=== PATIENT | male | born 1995 | race Caucasian/White ===

== ENCOUNTER 2018-03-31 20:12 | Emergency (ER) | payer SELFPAY ==
[~2018-03-31] VITALS: Ht 167.6 cm; Wt 84.4 kg
[2018-03-31] MEDS ORDERED: NS IV 1000 ML 1,000 ML ONE (20:25)
[2018-03-31] MEDS ORDERED: KETOROLAC 30 MG/ML VIAL ONE (20:25)
[2018-03-31] MEDS ORDERED: fentaNYL INJECTION 100 MCG/2 ML AMP ONE (20:25)
[2018-03-31] MEDS ORDERED: KETOROLAC 30 MG/ML VIAL IVP ONE (20:30)
[2018-03-31] MEDS ORDERED: fentaNYL INJECTION 100 MCG/2 ML AMP IVP ONE (20:30)
[2018-03-31] MEDS ORDERED: NS IV 1000 ML 1,000 ML IV SCH (20:30)
[2018-03-31 20:32] LABS: BASOPHILS % (AUTO) 0 % (0-10); EOSINOPHILS # (AUTO) 0.2 10^3/uL (0.0-0.3); EOSINOPHILS % (AUTO) 2 % (0-10); HEMATOCRIT 45 % (40-54); HEMOGLOBIN 16.4 G/DL (13.3-17.7); LYMPHOCYTES # (AUTO) 1.1 X 10^3 (1.0-4.0); LYMPHOCYTES % (AUTO) 16 % (12-44); MEAN CORPUSCULAR HEMOGLOBIN 31 PG (25-34); MEAN CORPUSCULAR HGB CONC 36 G/DL (32-36); MEAN CORPUSCULAR VOLUME 86 FL (80-99); MONOCYTES # (AUTO) 0.6 X 10^3 (0.0-1.0); MONOCYTES % (AUTO) 9 % (0-12); NEUTROPHILS # (AUTO) 4.7 X 10^3 (1.8-7.8); NEUTROPHILS % (AUTO) 72 % (42-75); PLATELET COUNT 248 10^3/uL (130-400); RED BLOOD COUNT 5.28 10^6/uL (4.35-5.85); RED CELL DISTRIBUTION WIDTH 12.4 % (10.0-14.5); WHITE BLOOD COUNT 6.5 10^3/uL (4.3-11.0)
[2018-03-31] MEDS ORDERED: ONDANSETRON 4 MG/2 ML (SDV) Z0FRAN ONE (20:54)
[2018-03-31] MEDS ORDERED: ONDANSETRON 4 MG/2 ML (SDV) Z0FRAN IVP ONE (21:00)
[2018-03-31 21:02] LABS: ALANINE AMINOTRANSFERASE 16 U/L (0-55); ALBUMIN 4.7 GM/DL (3.2-4.5); ALKALINE PHOSPHATASE 60 U/L (40-136); AMYLASE 64 U/L (25-125); BILIRUBIN,TOTAL 0.7 MG/DL (0.1-1.0); BUN/CREATININE RATIO 10; CARBON DIOXIDE 15 MMOL/L (21-32); CHLORIDE 102 MMOL/L (98-107); CREATININE SERUM 1.35 MG/DL (0.60-1.30); GFR ESTIMATED > 60; GLUCOSE 195 MG/DL (70-105); LIPASE 27 U/L (8-78); POTASSIUM 2.9 MMOL/L (3.6-5.0); SODIUM 138 MMOL/L (135-145); TOTAL PROTEIN 7.2 GM/DL (6.4-8.2)
--- NOTE | 2018-03-31 21:02 | ED Back Pain ---
General Chief Complaint: Back Problems Stated Complaint: PANTING/SOB/BACK PAIN/BLOOD IN URINE Nursing Triage Note: states that this afternoon started having lower left back pain, masturbated, pain increased and urinated blood. panting Nursing Sepsis Screen: No Definite Risk Source of Information: Patient Exam Limitations: No Limitations History of Present Illness Date Seen by Provider: Mar 31, 2018 Time Seen by Provider: 20:20 Initial Comments Patient is a 22-year-old male who presents to the emergency room with complaints of lower left back pain that started this afternoon. He reports that this evening he did masturbate and the pain increased and he started to urinate blood. He also reports nausea. Denies history of kidney stones. Pain/Injury Location: Back, Other Allergies and Home Medications Allergies Coded Allergies: No Known Drug Allergies (Unverified , 03/31/18) Home Medications Hydrocodone Bit/Acetaminophen 1 Tab Tab, 1-2 EACH PO Q6H PRN for PAIN-MODERATE Prescribed by: JUHI POTTS on 03/31/182149 Ondansetron 4 Mg Tab.rapdis, 4 MG SL Q4H PRN for NAUSEA/VOMITING-1ST LINE Prescribed by: JUHI POTTS on 03/31/182151 Sulfamethoxazole/Trimethoprim 1 Each Tablet, 1 EACH PO BID Prescribed by: JUHI POTTS on 03/31/182149 Patient Home Medication List Home Medication List Reviewed: Yes Review of Systems Constitutional: see HPI; No chills, No fever Gastrointestinal: LLQ (left flank), see HPI, nausea Genitourinary: hematuria All Other Systems Reviewed Negative Unless Noted: Yes Past Kqsznok-Jnrinp-Udsrfx Hx Past Med/Social Hx: Reviewed Nursing Past Med/Soc Hx Patient Social History Alcohol Use: Denies Use Recreational Drug Use: No Smoking Status: Never a Smoker 2nd Hand Smoke Exposure: No Recent Foreign Travel: No Contact w/Someone Who Travel: No Recent Infectious Disease Expo: No Recent Hopitalizations: No Physical Abuse: No Sexual Abuse: No Mistreated: No Fear: No Seasonal Allergies Seasonal Allergies: No Past Medical History Surgeries: Yes Orthopedic Respiratory: No Cardiac: No Neurological: No Genitourinary: No Gastrointestinal: No Musculoskeletal: No Endocrine: No HEENT: No Cancer: No Psychosocial: No Integumentary: No Blood Disorders: No Adverse Reaction/Blood Tranf: No Family Medical History Reviewed Nursing Family Hx Physical Exam Vital Signs Vital Signs - First Documented 03/31/18 20:20 Temp 96.7 Pulse 78 Resp 16 B/P (MAP) 154/88 (110) Pulse Ox 100 Capillary Refill : Less Than 3 Seconds Height, Weight, BMI Height: 5'6.00" Weight: 186lbs. oz. 84.626770xi; BMI Method:Stated General Appearance: No Apparent Distress, WD/WN Neck: Full Range of Motion, Normal Inspection, Non Tender, Supple Cardiovascular: Regular Rate, Rhythm, No Edema, No Gallop, No JVD, No Murmur, Normal Peripheral Pulses Respiratory: Chest Non Tender, Lungs Clear, Normal Breath Sounds, No Accessory Muscle Use, No Respiratory Distress, Accessory Muscle Use Gastrointestinal: Normal Bowel Sounds, No Organomegaly, No Pulsatile Mass, Tenderness Genital/Rectal: Normal Genital Exam Back: Normal Inspection, CVA Tenderness (L) Neurologic/Psychiatric: Alert, Oriented x3, Normal Mood/Affect Skin: Normal Color, Warm/Dry Progress/Results/Core Measures Results/Orders Lab Results Laboratory Tests Test 03/31/18 20:25 03/31/18 22:26 Range/Units White Blood Count 6.5 4.3-11.0 10^3/uL Red Blood Count 5.28 4.35-5.85 10^6/uL Hemoglobin 16.4 13.3-17.7 G/DL Hematocrit 45 40-54 % Mean Corpuscular Volume 86 80-99 FL Mean Corpuscular Hemoglobin 31 25-34 PG Mean Corpuscular Hemoglobin Concent 36 32-36 G/DL Red Cell Distribution Width 12.4 10.0-14.5 % Platelet Count 248 130-400 10^3/uL Mean Platelet Volume 11.0 H 7.4-10.4 FL Neutrophils (%) (Auto) 72 42-75 % Lymphocytes (%) (Auto) 16 12-44 % Monocytes (%) (Auto) 9 0-12 % Eosinophils (%) (Auto) 2 0-10 % Basophils (%) (Auto) 0 0-10 % Neutrophils # (Auto) 4.7 1.8-7.8 X 10^3 Lymphocytes # (Auto) 1.1 1.0-4.0 X 10^3 Monocytes # (Auto) 0.6 0.0-1.0 X 10^3 Eosinophils # (Auto) 0.2 0.0-0.3 10^3/uL Basophils # (Auto) 0.0 0.0-0.1 10^3/uL Sodium Level 138 135-145 MMOL/L Potassium Level 2.9 L 3.6-5.0 MMOL/L Chloride Level 102 98-107 MMOL/L Carbon Dioxide Level 15 L 21-32 MMOL/L Anion Gap 21 H 5-14 MMOL/L Blood Urea Nitrogen 14 7-18 MG/DL Creatinine 1.35 H 0.60-1.30 MG/DL Estimat Glomerular Filtration Rate > 60 BUN/Creatinine Ratio 10 Glucose Level 195 H 70-105 MG/DL Calcium Level 10.0 8.5-10.1 MG/DL Corrected Calcium 8.5-10.1 MG/DL Total Bilirubin 0.7 0.1-1.0 MG/DL Aspartate Amino Transf (AST/SGOT) 17 5-34 U/L Alanine Aminotransferase (ALT/SGPT) 16 0-55 U/L Alkaline Phosphatase 60 40-136 U/L Total Protein 7.2 6.4-8.2 GM/DL Albumin 4.7 H 3.2-4.5 GM/DL Amylase Level 64 25-125 U/L Lipase 27 8-78 U/L Urine Color MENDY H Urine Clarity CLEAR Urine pH 6 5-9 Urine Specific Chase 1.025 H 1.016-1.022 Urine Protein 2+ H NEGATIVE Urine Glucose (UA) 2+ H NEGATIVE Urine Ketones 3+ H NEGATIVE Urine Nitrite NEGATIVE NEGATIVE Urine Bilirubin NEGATIVE NEGATIVE Urine Urobilinogen 1 NORMAL MG/DL Urine Leukocyte Esterase 1+ H NEGATIVE Urine RBC (Auto) 5+ H NEGATIVE Urine RBC 25-50 H /HPF Urine WBC 0-2 /HPF Urine Crystals NONE /LPF Urine Bacteria NEGATIVE /HPF Urine Casts NONE /LPF Urine Mucus LARGE H /LPF Urine Culture Indicated NO My Orders Orders - BERNOT,JUHI Fentanyl Injection (Sublimaze Injection (03/31/18 20:30) Ketorolac Injection (Toradol Injection) (03/31/18 20:30) Ns Iv 1000 Ml (Sodium Chloride 0.9%) (03/31/18 20:30) Ct Abd/Pelvis Wo(Kidney Stone) (03/31/18 20:26) Saline Lock/Iv-Start (03/31/18 20:26) Comprehensive Metabolic Panel (03/31/18 20:26) Lipase (03/31/18 20:26) Amylase (03/31/18 20:26) Ua Culture If Indicated (03/31/18 20:26) Cbc With Automated Diff (03/31/18 20:26) Fentanyl Injection (Sublimaze Injection (03/31/18 20:25) Ketorolac Injection (Toradol Injection) (03/31/18 20:25) Ns Iv 1000 Ml (Sodium Chloride 0.9%) (03/31/18 20:25) Ondansetron Injection (Zofran Injectio (03/31/18 21:00) Ondansetron Injection (Zofran Injectio (03/31/18 20:54) Abdomen/Kub 1view (03/31/18 ) Rx-Ondansetron Po (Rx-Zofran Po) (03/31/18 22:10) Rx-Hydrocodone/Apap 5-325 Mg (Rx-Vicodin (03/31/18 22:15) Sulfamethoxazole/Trimet Ds Tab (Bactrim (03/31/18 22:15) Medications Given in ED Current Medications Medications Dose Ordered Sig/Salty Route Start Time Stop Time Status Last Admin Dose Admin Acetaminophen/ Hydrocodone Bitart 1 ea Q4H PRN PO 03/31/18 22:15 03/31/18 22:54 DC 03/31/18 22:25 1 EA Fentanyl Citrate 50 mcg ONCE ONCE IVP 03/31/18 20:30 03/31/18 20:31 DC 03/31/18 20:32 50 MCG Ketorolac Tromethamine 30 mg ONCE ONCE IVP 03/31/18 20:30 03/31/18 20:31 DC 03/31/18 20:32 30 MG Ondansetron HCl 8 mg ONCE ONCE IVP 03/31/18 21:00 03/31/18 21:01 DC 03/31/18 21:02 8 MG Trimethoprim/ Sulfamethoxazole 1 ea ONCE ONCE PO 03/31/18 22:15 03/31/18 22:16 DC 03/31/18 22:25 1 EA Vital Signs/I&O 03/31/18 03/31/18 20:20 22:30 Temp 96.7 Pulse 78 73 Resp 16 16 B/P (MAP) 154/88 (110) 117/73 Pulse Ox 100 99 Blood Pressure Mean: 110 Progress Progress Note : Time: 20:55 Progress Note The patient's nausea has become worse and he has started to vomit. Zofran has been ordered. 2139: Patient was informed of CT findings. His pain has resolved. I have informed him of plans for discharge and close follow up with Dr. De León. he agrees with plan of care. Return precautions were given. Diagnostic Imaging Diagonstic Imaging: CT Plain Films/CT/US/NM/MRI: abdomen, pelvis Comments NAME: ANGÉLICAJORGESHERRIKARAN Anny Skillz REC#: [id number] PHYSICIAN: JUHI POTTS CC: JUHI POTTS; MARIO SWEENEY Page 2 of 2 RADIOLOGY REPORT VIA [place], [place] CC: JUHI POTTS; MARIO SWEENEY Page 1 of 1 RADIOLOGY REPORT NAME: ANGÉLICAJANI GIBBS V Skillz REC#: [id number] PT STATUS: REG ER : 1995 PHYSICIAN: JUHI POTTS ADMIT DATE: 03/31/18/ER Signed Date of Exam: 03/31/18 CT ABD/PELVIS WO(KIDNEY STONE) PROCEDURE: CT urinary tract, rule out kidney stone. TECHNIQUE: Multiple contiguous axial images were obtained through the abdomen and pelvis without the use of intravenous contrast. INDICATION: Left flank and scrotal pain. Hematuria. FINDINGS: There is a small 2.9 mm stone at the level of the left ureterovesical junction which results in minimal hydronephrosis and mild ectasia of the left ureter. There is mild left perinephric and periureteric edema but no urinoma or fluid collection. The unobstructed right kidney was without stone. The adrenals are negative. Large peripherally calcified gallstone measures 2.7 cm there were no findings of acute cholecystitis or biliary dilatation. The adrenals, spleen and pancreas are negative. The bowel is unobstructed, nonfocal and nonacute. IMPRESSION: A 2.9 mm stone at the left ureterovesical junction results in very slight left hydroureteronephrosis with minimal perinephric edema. No additional opaque calculi. Gallstones are noted. No other acute finding. Dictated by: Dictated on workstation # [id number] Dict: 03/31/182048 Trans: 03/31/182219 Interpreted by: MARIO SWEENEY Electronically signed by: MARIO SWEENEY 03/31/182219 VIA [facility]. [place], [place] NAME: JANI LINDSAY V [facility] REC#: [id number] PT STATUS: REG ER : 1995 PHYSICIAN: JUHI POTTS ADMIT DATE: 03/31/18/ER Draft Date of Exam:03/31/18 ABDOMEN/KUB 1VIEW INDICATION: Left flank pain. FINDINGS: Bowel gas pattern appeared normal. The distal ureteral stone is projecting along the lateral cortex of the sacrococcygeal junction. No other suspicious calcifications. IMPRESSION: Distal left ureteral stone is subtly perceptible along the lateral cortical margin of the sacrococcygeal junction. Nonobstructive bowel gas pattern. Dictated on workstation # [id number] Dict: 03/31/182216 Trans: 03/31/182232 KARO [id number] Interpreted by: MARIO SWEENEY Electronically signed by: Reviewed: Reviewed by Me Departure Impression Primary Impression: Kidney stone Disposition: 01 HOME, SELF-CARE Condition: Stable/Unchanged Departure-Patient Inst. Decision time for Depature: 21:49 Referrals: NO,LOCAL PHYSICIAN (PCP) Primary Care Physician NIKOLAY DE LEÓN MD Patient Instructions: Kidney Stones (DC) Add. Discharge Instructions: Take medication as directed. Follow-up with Dr. De León's office within 1 week for recheck. Call first thing Tuesday morning for an appointment time. Strain all urine and if he should pass the kidney stone take it with you to Dr. De' s office. Return back to the emergency room for any worsening symptoms or concerns as needed. All discharge instructions reviewed with patient and/or family. Voiced understanding. Scripts Ondansetron (Zofran Odt) 4 Mg Tab.rapdis 4 MG SL Q4H PRN for NAUSEA/VOMITING-1ST LINE, #14 TAB Prov: JUHI POTTS 03/31/18 Hydrocodone Bit/Acetaminophen (Hydrocodone/Acetaminophen 5/325mg Tablet) 1 Tab Tab 1-2 EACH PO Q6H PRN for PAIN-MODERATE MDD 10, #20 TAB Prov: JUHI POTTS 03/31/18 Sulfamethoxazole/Trimethoprim (Bactrim Ds Tablet) 1 Each Tablet 1 EACH PO BID for 7 Days, #14 TAB Prov: JUHI POTTS 03/31/18 JUHI POTTS Mar 31, 2018 21:02
[2018-03-31] MEDS ORDERED: SULF1TAB35 PO (21:50)
[2018-03-31] MEDS ORDERED: ACHD5005 PO (21:50)
[2018-03-31] MEDS ORDERED: ONDA4TAB8 SL (21:52)
[2018-03-31] MEDS ORDERED: RX-ONDANSETRON 4 MG ODT (ZOFRAN) PPK #4 PO STA (22:10)
[2018-03-31] MEDS ORDERED: RX-HYDROCODONE/APAP 5/325 MG #4 TAB PK PO PRN (22:15)
[2018-03-31] MEDS ORDERED: TRIM/SULFAMETH 160/800 (SEPTRA DS) TAB PO ONE (22:15)
[2018-03-31 22:30] VITALS: BP 117/73
[2018-03-31 22:32] LABS: BILIRUBIN,URINE NEGATIVE (NEGATIVE); CLARITY,URINE CLEAR; COLOR,URINE AMBER; GLUCOSE, URINE (UA) 2+ (NEGATIVE); KETONES,URINE 3+ (NEGATIVE); LEUKOCYTE ESTERASE ,URINE 1+ (NEGATIVE); NITRITE,URINE NEGATIVE (NEGATIVE); PH,URINE 6 (5-9); PROTEIN,URINE 2+ (NEGATIVE); UROBILINOGEN,URINE 1 MG/DL (NORMAL)
--- NOTE | 2018-03-31 22:34 | Diagnostic Imaging Report ---
INDICATION: Left flank pain. FINDINGS: Bowel gas pattern appeared normal. The distal ureteral stone is projecting along the lateral cortex of the sacrococcygeal junction. No other suspicious calcifications. IMPRESSION: Distal left ureteral stone is subtly perceptible along the lateral cortical margin of the sacrococcygeal junction. Nonobstructive bowel gas pattern. Dictated by: Dictated on workstation # [id number]
[2018-03-31 22:46] LABS: BACTERIA,URINE NEGATIVE /HPF; RBC,URINE 25-50 /HPF; WBC,URINE 0-2 /HPF
== END 2018-03-31 22:30 | disposition home or self-care (01) ==
LOC: ER 20:14
DX: N13.2 Hydronephrosis with renal and ureteral calculous obstruction (principal)
CPT/HCPCS: 36415; 74018; 74176; 80053; 81000; 82150; 83690; 85025; 96361; 96374; 96375